=== PATIENT | male | born 1985 | race Caucasian/White ===

== ENCOUNTER 2018-05-10 14:07 | Emergency (ER) | payer MEDICAID ==
[2018-05-10] MEDS ORDERED: morphine 10 MG INJ IM (15:00)
[2018-05-10 15:13] LABS: ADD MAN DIFF? NO
[2018-05-10] MEDS: ONDANSETRON (ODT) 4 MG TAB ODT (15:13)
[2018-05-10] MEDS: morphine 4 MG/ML VIAL IV (15:14)
[2018-05-10] MEDS: DIPHTH/TET/ACEL PERTUSS (ADULT) 0.5 ML VIAL IM* (15:15)
[2018-05-10 15:26] LABS: WHITE BLOOD COUNT 10.1 10^3/ul (4.8-10.8)
[2018-05-10 15:26] LABS: ABNORMAL IP MESSAGE 1; BASOPHILS % 0.4 % (0.0-2.0); EOSINOPHILS # 0.2 10^3/ul (0.0-0.5); EOSINOPHILS % 1.8 % (0.0-7.0); HEMATOCRIT 46.5 % (42.0-52.0); HEMOGLOBIN 15.7 g/dl (14.0-18.0); LYMPHOCYTES # 1.8 10^3/ul (0.8-2.9); LYMPHOCYTES % 18.1 % (15.0-51.0); MEAN CORPUSCULAR HEMOGLOBIN 29.9 pg (29.0-33.0); MEAN CORPUSCULAR HGB CONC 33.8 g/dl (32.0-37.0); MEAN CORPUSCULAR VOLUME 88.6 fl (82.0-101.0); MEAN PLATELET VOLUME 13.3 fl (7.4-10.4); MONOCYTE # 0.9 10^3/ul (0.3-0.9); MONOCYTES % 8.5 % (0.0-11.0); NEUTROPHIL # 7.2 10^3/ul (1.6-7.5); NEUTROPHILS % 70.8 % (39.0-77.0); PLATELET COUNT 153 10^3/UL (140-415); POSITIVE DIFF @See below; RED BLOOD COUNT 5.25 10^6/ul (4.70-6.10); RED CELL DISTRIBUTION WIDTH 12.5 % (11.5-14.5)
[2018-05-10 15:34] LABS: ANION GAP 20 (8-16); BLOOD UREA NITROGEN 12 mg/dl (7-20); CALCIUM 8.8 mg/dl (8.4-10.2); CARBON DIOXIDE 22 mmol/L (21-31); CHLORIDE 103 mmol/L (97-110); CREATININE 0.69 mg/dl (0.61-1.24); GLUCOSE 218 mg/dl (70-220); INR 0.94; POTASSIUM 3.8 mmol/L (3.5-5.1); PROTIME 12.7 Sec (11.9-14.9); SODIUM 141 mmol/L (135-144)
[2018-05-10] MEDS: HYDROmorphONE 0.5 MG/0.5 ML SYG IV (16:03)
[2018-05-10] MEDS: CEFAZOLIN 2 GM/50 ML (PMX) 50 ML IVPB (16:13)
== END 2018-05-10 17:20 | disposition home or self-care (01) ==
LOC: FTE 14:07
DX: S42.402A Unspecified fracture of lower end of left humerus, initial encounter for closed fracture (principal); S52.182A Other fracture of upper end of left radius, initial encounter for closed fracture; M79.632 Pain in left forearm; R60.9 Edema, unspecified; W11.XXXA Fall on and from ladder, initial encounter; Y92.89 Other specified places as the place of occurrence of the external cause; Z23 Encounter for immunization
CPT/HCPCS: 36415; 71045; 73080-LT; 73090; 80048; 85025; 85610; 86850; 86900; 86901; 90471; 90715; 93005; 96374; 96375; 99285-25

== ENCOUNTER 2019-07-05 15:22 | Emergency (ER) | payer SELFPAY, MEDICAID ==
[2019-07-05] MEDS: LIDOCAINE 2%/EPI (MDV) 20ML INJ INJ (18:03)
== END 2019-07-05 19:52 | disposition home or self-care (01) ==
LOC: FTE 15:22
DX: S31.21XA Laceration without foreign body of penis, initial encounter (principal); X58.XXXA Exposure to other specified factors, initial encounter; Y92.9 Unspecified place or not applicable
CPT/HCPCS: 99283

== ENCOUNTER 2019-07-09 10:43 | Emergency (ER) | payer MEDICAID ==
[2019-07-09] MEDS: SOD CHLORIDE 0.9% 1,000 ML IV (11:29)
[2019-07-09 11:51] LABS: ADD UMIC NO; UR ASCORBIC ACID NEGATIVE (NEGATIVE); UR BILIRUBIN (Dip) NEGATIVE (NEGATIVE); UR BLOOD (Dip) NEGATIVE (NEGATIVE); UR CLARITY CLEAR (CLEAR); UR COLOR YELLOW (YELLOW); UR GLUCOSE (Dip) 3+ mg/dL (NEGATIVE); UR KETONES (Dip) 2+ mg/dL (NEGATIVE); UR LEUKOCYTE ESTERASE (Dip) NEGATIVE Leu/ul (NEGATIVE); UR NITRITE (Dip) NEGATIVE (NEGATIVE); UR SPECIFIC GRAVITY (Dip) 1.037 (1.003-1.030); UR TOTAL PROTEIN (Dip) NEGATIVE (NEGATIVE); UR UROBILINOGEN (Dip) NEGATIVE (NEGATIVE)
[2019-07-09 11:52] LABS: ADD MAN DIFF? NO
[2019-07-09 11:58] LABS: ABNORMAL IP MESSAGE 1; BASOPHIL # 0.1 10^3/ul (0.0-0.1); BASOPHILS % 0.7 % (0.0-2.0); EOSINOPHILS % 0.6 % (0.0-7.0); HEMATOCRIT 48.3 % (42.0-52.0); HEMOGLOBIN 16.8 g/dl (14.0-18.0); LYMPHOCYTES # 1.2 10^3/ul (0.8-2.9); LYMPHOCYTES % 16.8 % (15.0-51.0); MEAN CORPUSCULAR HEMOGLOBIN 32.1 pg (29.0-33.0); MEAN CORPUSCULAR HGB CONC 34.8 g/dl (32.0-37.0); MEAN CORPUSCULAR VOLUME 92.4 fl (82.0-101.0); MEAN PLATELET VOLUME 14.4 fl (7.4-10.4); MONOCYTE # 0.7 10^3/ul (0.3-0.9); MONOCYTES % 9.9 % (0.0-11.0); NEUTROPHILS % 71.4 % (39.0-77.0); PLATELET COUNT 120 10^3/UL (140-415); POSITIVE DIFF @See below; RED BLOOD COUNT 5.23 10^6/ul (4.70-6.10); RED CELL DISTRIBUTION WIDTH 12.3 % (11.5-14.5)
[2019-07-09 12:10] LABS: ALANINE AMINOTRANSFERASE 391 IU/L (13-69); ALBUMIN/GLOBULIN RATIO 1.35; ALKALINE PHOSPHATASE 135 IU/L (42-121); ANION GAP 16 (5-13); ASPARTATE AMINO TRANSFERASE 315 IU/L (15-46); BILIRUBIN,INDIRECT 0.9 mg/dl (0-1.1); BILIRUBIN,TOTAL 0.9 mg/dl (0.2-1.3); BLOOD UREA NITROGEN 8 mg/dl (7-20); CALCIUM 10.1 mg/dl (8.4-10.2); CARBON DIOXIDE 25 mmol/L (21-31); CHLORIDE 98 mmol/L (97-110); CREATININE 0.42 mg/dl (0.61-1.24); Estimated GFR > 60 mL/min (>60); GLUCOSE 325 mg/dl (70-220); LIPASE 99 U/L (23-300); POTASSIUM 3.9 mmol/L (3.5-5.1); SODIUM 139 mmol/L (135-144); TOTAL PROTEIN 8.7 g/dl (6.1-8.1)
== END 2019-07-09 12:43 | disposition home or self-care (01) ==
LOC: FTE 12:43
DX: R73.9 Hyperglycemia, unspecified (principal)
CPT/HCPCS: 36415; 80053; 81003; 82962; 83690; 85025; 96360; 99284-25